=== PATIENT | male | born 1965 | race Caucasian/White ===

== ENCOUNTER 2018-11-03 09:22 | Emergency (ER) | payer OTHER ==
--- NOTE | 2018-11-03 10:07 | ED Physician Chart ---
ED Chief Complaint/HPI - Patient Information Date Seen:: 11/03/18 Time Seen:: 10:00 Chief Complaint:: chest pain History of Present Illness:: Patient developed left-sided chest pain and left mid back pain 6 days ago while coughing. Patient had sore throat and cough both of which have greatly improved to totally subsided. Patient quit smoking 2 weeks ago. Allergies:: Allergies Allergy/AdvReac Type Severity Reaction Status Date / Time No Known Allergies Allergy Verified 11/03/18 09:40 Vitals:: Vital Signs - 8 hr 11/03/18 09:33 Temp 98.3 F HR 102 RR 18 BP 153/108 O2 Sat % 96 Historian:: Patient Review:: Nurse's Note Reviewed ED Review of Systems - Review of Systems General/Constitutional: No fever, No chills, No weight loss, No weakness, No diaphoresis, No edema, No loss of appetite Skin: No skin lesions, No rash, No bruising Head: No headache, No light-headedness Eyes: No loss of vision, No pain, No diplopia ENT: No earache, No nasal drainage, No sore throat, No tinnitus Neck: No neck pain, No swelling, No thyromegaly, No stiffness, No mass noted Cardio Vascular: No chest pain, No palpitations, No PND, No orthopnea, No edema Pulmonary: No SOB, No cough, No sputum, No wheezing, Other (chest wall pain) GI: No nausea, No vomiting, No diarrhea, No pain, No melena, No hematochezia, No constipation, No hematemesis G/U: No dysuria, No frequency, No hematuria Musculoskeletal: No bone or joint pain, No back pain, No muscle pain, Other ( see history and physical) Endocrine: No polyuria, No polydipsia Psychiatric: No prior psych history, No depression, No anxiety, No suicidal ideation Hematopoietic: No bruising, No lymphadenopathy Allergic/Immuno: No urticaria, No angioedema Neurological: No syncope, No focal symptoms, No weakness, No paresthesia, No headache, No seizure, No dizziness, No confusion, No vertigo ED Past Medical History - Past Medical History Past Medical History: HTN, DM Family History: Heart disease, Diabetes Melitus, Other (family history congestive heart failure) Social History: Non Smoker Surgical History: other (right wrist surgery for fracture and subcutaneous cyst right shoulder) Medication: Reviewed Family Medical History - Family Member Father History Unknown: Yes ED Physical Exam - Physical Examination General/Constitutional: Awake, Well-developed, well-nourished, Alert, No distress, GCS 15, Non-toxic appearing, Ambulatory Head: Atraumatic Eyes: Lids, conjuctiva normal, PERRL, EOMI Skin: Nl inspection, No rash, No skin lesions, No ecchymosis, Well hydrated, No lymphadenopathy ENMT: External ears, nose nl, Nasal exam nl, Lips, teeth, gums nl Neck: Nontender, Full ROM w/o pain, No JVD, No nuchal rigidity, No bruit, No mass, No stridor Respiratory: Nl effort/Exclusion, Clear to Auscultation Other Respiratory comments:: Tenderness left inferior chest wall and minimal rales right mid lung field; otherwise chest is clear Cardio Vascular: RRR, No murmur, gallop, rubs, NL S1 S2 GI: No tenderness/rebounding/guarding, No organomegaly, No hernia, Normal BS's, Nondistended, No mass/bruits, No McBurney tenderness : No CVA tenderness Extremities: No tenderness or effusion, Full ROM, normal strength in all extremities, No edema, Normal digits & nails Neuro/Psych: Alert/oriented, DTR's symmetric, Normal sensory exam, Normal motor strength, Judgement/insight normal, Mood normal, Normal gait, No focal deficits Misc: Normal back, No paraspinal tenderness ED Labs/Radiology/EKG Results - Lab Results Comments:: Chest x-ray is negative - Radiology Results Results: One view chest x-ray negative ED Assessment - Assessment General Assessment: Patient apparently tore intercostal muscles left hemithorax while coughing. 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 Is Septic Shock (SBP<90, OR Lactate>4 mmol\L) present?: No - <6hrs of presentation: Vital Signs: Vital Signs - 8 hr 11/03/18 09:33 Temp 98.3 F HR 102 RR 18 BP 153/108 O2 Sat % 96 ED Reassessment (Disposition) - Reassessment Reassessment:: Patient received slight improvement after the Toradol 30 mg intramuscularly Reassessment Condition:: Improved - Diagnosis Diagnosis:: Chest wall strain - Aftercare/Follow up Instructions Aftercare/Follow-Up Instructions:: Refer to Discharge Instructions Medication Prescribed:: Ibuprofen 800 mg #20 to take 1 3 times a day - Patient Disposition Discharge/Transfer:: Home Condition at Disposition:: Stable, Improved
--- NOTE | 2018-11-03 10:29 | Diagnostic Imaging Report ---
CHEST X-RAY: AP view INDICATION: Left anterior chest wall pain after coughing COMPARISON: None FINDINGS: There is no focal consolidation or pleural effusions The heart is normal in size. No evidence of pneumothorax. Degenerative changes of the spine are noted. There may be minimal atherosclerosis of the aortic arch. IMPRESSION: No focal consolidation or evidence of pneumothorax.
== END 2018-11-03 11:15 | disposition home or self-care (01) ==
LOC: ER 09:22
DX: S29.011A Strain of muscle and tendon of front wall of thorax, initial encounter (principal); I10 Essential (primary) hypertension; E11.9 Type 2 diabetes mellitus without complications; Z87.891 Personal history of nicotine dependence; Z98.890 Other specified postprocedural states; X58.XXXA Exposure to other specified factors, initial encounter; Y93.89 Activity, other specified; Y92.89 Other specified places as the place of occurrence of the external cause; Y99.8 Other external cause status
CPT/HCPCS: 99283; 96372; 71045; J1885; Z7502